=== PATIENT | male | born 1965 | race Caucasian/White ===

== ENCOUNTER 2016-11-24 08:30 | Day surgery (SDC) | payer OTHER ==
[~2016-11-24] VITALS: Ht 167.6 cm; Wt 75.7 kg
[2016-11-24] MEDS ORDERED: METFORMIN (08:58)
[2016-11-24] MEDS ORDERED: SIMVASTATIN (08:58)
[2016-11-24 08:59] VITALS: Ht 167.6 cm; Wt 75.7 kg
[2016-11-24 09:24] VITALS: BP 102/68; PULSE 72; RESP 14
[2016-11-24] MEDS ORDERED: FENTAnyl 50 MCG/ML VIAL ONE (10:13)
[2016-11-24] MEDS ORDERED: MIDAZOLAM 1 MG/ML 2 ML INJ ONE ×2 (10:13)
[2016-11-24 10:31] VITALS: BP 121/88; PULSE 70; RESP 18
--- NOTE | 2016-11-24 10:53 | GILP ---
DATE OF PROCEDURE: 11/24/2016 NAME OF PROCEDURE: Colonoscopy and polypectomy and biopsy of multiple polyps. PREOPERATIVE DIAGNOSIS: The patient presenting with a history of no significant problems. This is a screening colonoscopy to rule out colon polyps. POSTOPERATIVE DIAGNOSES: Multiple polyps as described below. DESCRIPTION OF PROCEDURE: After informed written consent was obtained, the patient was asked to lie on the left lateral side, 4 mg of Versed was given as intravenous anesthesia. Also, 75 mg of fenta nyl was given. When the patient became somnolent, the Olympus video colonoscope was introduced into the rectum and scope was advanced all the way to the cecum. Multiple polyps were noted as describe d below. Just above the ileocecal valve on a fold, 5 polyps were noted. Two polyps were removed by using the polypectomy snare, which was a hot polypectomy snare. The other 3 polyps were removed wi th a cold biopsy forceps. Proximal transverse colon showed evidence of a 6 mm polyp which is a sess ile polyp. This was also removed with the hot polypectomy snare. Mid transverse colon showed evide nce of another 5 mm polyp and this polyp was also removed with hot snare by doing a polypectomy proc edure. Now at 35 cm from the anus, there is evidence of a 3 mm polyp. This was removed with a biop sy forceps. At 18 cm from the anus, there is evidence of a 1 cm polyp. This was also removed by me ans of a polypectomy technique by using the hot snare. At about 3 cm above the anus, there is evidence of at least a 3 cm in diameter polyp noted on a wide stalk and this wide stalk occupies a larger area of the fold of the colon. By means of a piecemeal technique, most of the polyp was removed by using the hot snare. Following the polypectomy, one He moclip was applied for prophylactic bleeding purposes. The rest of the colon was examined thoroughl y. Multiple small polyps were noted. Occasional diverticula noted. Scope was withdrawn and the pr ocedure was terminated. PLAN: Recommend wait for the pathology report and recommend repeat colonoscopy in 3 ____ . Dictated By: KENNY LONG/SHIV Conf#: [id number] DID#: [id number] CC: YOMAIRA LATIF M.D.; KENNY KINNEY MD;*[facility]*
== END 2016-11-24 11:47 | disposition home or self-care (01) ==
LOC: GIL 08:30
PROVIDERS: ATTEND Internal Medicine Gastroenterology
DX: Z12.11 Encounter for screening for malignant neoplasm of colon (principal); D12.3 Benign neoplasm of transverse colon; K63.5 Polyp of colon; E11.9 Type 2 diabetes mellitus without complications; E78.00 Pure hypercholesterolemia, unspecified
CPT/HCPCS: 45380; 82962; 88305; J2250; J3010; Z7610